=== PATIENT | female | born 1940 | race African-American/Black ===

== ENCOUNTER 2021-06-22 13:45 | Inpatient (IN) | payer MEDICARE ==
[~2021-06-22] VITALS: Ht 157.5 cm; Wt 64.1 kg
[2021-06-22 15:05] LABS: BASOPHIL 0.5 % (0-2); EOSINOPHIL 0 % (0-7); HGB 15.3 g/dl (12.5-16.0); LYMPHOCYTE 8.3 % (15-48); MCH 29.3 pg (25.0-31.0); MCHC 32.6 g/dL (32.0-36.0); MCV 89.9 fL (78.0-100.0); MONOCYTE 4.2 % (0-12); MPV 9.8 fL (6.0-9.5); NEUTROPHIL 82.4 % (41-80); NRBC 0; PLT 279 K/uL (150-400); RBC 5.23 M/uL (4.20-5.40); WBC 10.7 K/uL (4.0-10.5)
[2021-06-22 15:23] LABS: BUN/CREAT RATIO (CALC) 24.7 RATIO; CREATININE 0.85 mg/dL (0.51-0.95); POTASSIUM 4.2 mmol/L (3.5-5.1)
[2021-06-22 21:33] LABS: BILIRUBIN NEGATIVE (NEGATIVE); BLOOD NEGATIVE Ery/uL (NEGATIVE); CLARITY CLEAR (CLEAR); COLOR YELLOW (YELLOW); GLUCOSE (U) NORMAL (NORMAL); LEUKOCYTES NEGATIVE Leu/uL (NEGATIVE); NITRITE NEGATIVE (NEGATIVE); PROTEIN TRACE (LOW) mg/dL (NEGATIVE); UROBILINOGEN 0.2 mg/dL (0.2-1.0)
[2021-06-22] MEDS ORDERED: FLOVENT HF120 PUFFS/ INH (22:02)
[2021-06-22] MEDS ORDERED: CLARITIN10 MG PO (22:02)
[2021-06-22] MEDS ORDERED: NORCO 5-325 TA1 EACH PO (22:03)
[2021-06-22] MEDS ORDERED: OMEPRAZOLE40 MG PO (22:04)
[2021-06-22] MEDS ORDERED: CARAFATE1 GM PO (22:04)
[2021-06-22] MEDS ORDERED: TOPAMAX50 MG PO (22:05)
[2021-06-23 06:48] LABS: BASOPHIL 0.4 % (0-2); EOSINOPHIL 0 % (0-7); HCT 40.6 % (37.0-47.0); HGB 13.2 g/dl (12.5-16.0); MCH 29.7 pg (25.0-31.0); MCHC 32.5 g/dL (32.0-36.0); MCV 91.2 fL (78.0-100.0); MPV 9.7 fL (6.0-9.5); NEUTROPHIL 75.3 % (41-80); NRBC 0; PLT 262 K/uL (150-400); RBC 4.45 M/uL (4.20-5.40); RDW 13.2 % (11.5-14.0); WBC 5.5 K/uL (4.0-10.5)
[2021-06-23 07:03] LABS: LYMPHOCYTE 17.2 % (15-48)
[2021-06-23 07:46] LABS: ALBUMIN 2.2 g/dL (3.4-5.0); BILIRUBIN - TOTAL 0.3 mg/dL (0.2-1.0); BUN/CREAT RATIO (CALC) 22.4 RATIO; C-REACTIVE PROTEIN 9.3 mg/dL (<=0.90); CREATININE 0.76 mg/dL (0.51-0.95); GLOBULIN (CALCULATION) 5.2 g/dL; MAGNESIUM 2.1 mg/dL (1.8-2.4); PHOSPHORUS 4.5 mg/dL (2.6-4.7); POTASSIUM 4.8 mmol/L (3.5-5.1); TOTAL PROTEIN 7.4 g/dL (6.4-8.2)
[2021-06-25 05:59] LABS: BASOPHIL 0.4 % (0-2); EOSINOPHIL 0 % (0-7); HCT 41.2 % (37.0-47.0); HGB 13.3 g/dl (12.5-16.0); LYMPHOCYTE 16.1 % (15-48); MCH 29.5 pg (25.0-31.0); MCHC 32.3 g/dL (32.0-36.0); MCV 91.4 fL (78.0-100.0); MONOCYTE 4.4 % (0-12); MPV 9.7 fL (6.0-9.5); NEUTROPHIL 74.6 % (41-80); NRBC 0; PLT 319 K/uL (150-400); RBC 4.51 M/uL (4.20-5.40); RDW 13.1 % (11.5-14.0)
[2021-06-25 06:09] LABS: WBC 10.6 K/uL (4.0-10.5)
[2021-06-25 06:26] LABS: ALBUMIN 2.4 g/dL (3.4-5.0); BILIRUBIN - TOTAL 0.5 mg/dL (0.2-1.0); BUN/CREAT RATIO (CALC) 24.5 RATIO; CREATININE 0.94 mg/dL (0.51-0.95); GLOBULIN (CALCULATION) 5.1 g/dL; POTASSIUM 4.7 mmol/L (3.5-5.1); TOTAL PROTEIN 7.5 g/dL (6.4-8.2)
[2021-06-26 06:22] LABS: BASOPHIL 0.1 % (0-2); EOSINOPHIL 0 % (0-7); HCT 38.8 % (37.0-47.0); HGB 12.5 g/dl (12.5-16.0); LYMPHOCYTE 13.3 % (15-48); MCH 29.3 pg (25.0-31.0); MCHC 32.2 g/dL (32.0-36.0); MCV 91.1 fL (78.0-100.0); MONOCYTE 3.4 % (0-12); MPV 9.8 fL (6.0-9.5); NEUTROPHIL 80.5 % (41-80); NRBC 0; PLT 288 K/uL (150-400); RBC 4.26 M/uL (4.20-5.40); RDW 13.1 % (11.5-14.0)
[2021-06-26 07:28] LABS: ALBUMIN 2.4 g/dL (3.4-5.0); BILIRUBIN - TOTAL 0.4 mg/dL (0.2-1.0); BUN/CREAT RATIO (CALC) 26.8 RATIO; CREATININE 0.82 mg/dL (0.51-0.95); GLOBULIN (CALCULATION) 4.5 g/dL; POTASSIUM 4.3 mmol/L (3.5-5.1); TOTAL PROTEIN 6.9 g/dL (6.4-8.2)
--- NOTE | 2021-06-26 21:47 | NUR ---
GRANDDAUGHTER EDILIA DANIEL CALLED AND WANTED TO INFORM NURSING PRIOR TO DISCHARGE , FAMILY WANTS TO DISCUSS PLACEMENT FOR REHAB/ LTC FOR PT.
[2021-06-27 06:57] LABS: ALBUMIN 2.4 g/dL (3.4-5.0); BILIRUBIN - TOTAL 0.5 mg/dL (0.2-1.0); BUN/CREAT RATIO (CALC) 26.2 RATIO; CREATININE 0.84 mg/dL (0.51-0.95); GLOBULIN (CALCULATION) 4.7 g/dL; POTASSIUM 4.2 mmol/L (3.5-5.1); TOTAL PROTEIN 7.1 g/dL (6.4-8.2)
--- NOTE | 2021-06-27 09:16 | NUR ---
PATIENT ON O2-3L PER NC. MONITOR SHOWING O2 SATS 86% WENT IN TO ASSESS PATIENT, SITTING UP IN CHAIR IN NO APPARENT DISTRESS. BUMPED PATIENT UP TO 4L PATIENT STILL 86-88% RT NOTIFIED
--- NOTE | 2021-06-27 12:27 | NUR ---
1000--PATIENT PLACED ON 7L OXIMIZER. WILL MONITOR RT NOTIFIED PATINET O2 SATS STILL NOT MAINTAINING ABOVE 89%. BUMPED OXYGEN TO 8L OXIMIZER. WILL MONITOR SATS
[2021-06-29 04:31] LABS: BASOPHIL 0.1 % (0-2); EOSINOPHIL 0.1 % (0-7); HCT 39.7 % (37.0-47.0); HGB 12.9 g/dl (12.5-16.0); LYMPHOCYTE 5.5 % (15-48); MCH 29.1 pg (25.0-31.0); MCHC 32.5 g/dL (32.0-36.0); MCV 89.4 fL (78.0-100.0); MONOCYTE 2.2 % (0-12); MPV 9.8 fL (6.0-9.5); NRBC 0; PLT 283 K/uL (150-400); RBC 4.44 M/uL (4.20-5.40); WBC 16.5 K/uL (4.0-10.5)
[2021-06-29 04:39] LABS: NEUTROPHIL 90.3 % (41-80)
[2021-06-29 05:03] LABS: ALBUMIN 2.5 g/dL (3.4-5.0); BILIRUBIN - TOTAL 0.5 mg/dL (0.2-1.0); BUN/CREAT RATIO (CALC) 30.9 RATIO; CREATININE 0.94 mg/dL (0.51-0.95); GLOBULIN (CALCULATION) 4.1 g/dL; POTASSIUM 4.3 mmol/L (3.5-5.1); TOTAL PROTEIN 6.6 g/dL (6.4-8.2)
[2021-06-30 07:09] LABS: BASOPHIL 0.1 % (0-2); EOSINOPHIL 0.3 % (0-7); HGB 12.9 g/dl (12.5-16.0); LYMPHOCYTE 7.4 % (15-48); MCH 29.4 pg (25.0-31.0); MCHC 32.3 g/dL (32.0-36.0); MCV 91.1 fL (78.0-100.0); MONOCYTE 2.3 % (0-12); MPV 9.9 fL (6.0-9.5); NEUTROPHIL 88.4 % (41-80); NRBC 0; PLT 273 K/uL (150-400); RBC 4.39 M/uL (4.20-5.40); RDW 13.2 % (11.5-14.0); WBC 13.7 K/uL (4.0-10.5)
[2021-06-30 07:20] LABS: ALBUMIN 2.3 g/dL (3.4-5.0); BILIRUBIN - TOTAL 0.6 mg/dL (0.2-1.0); BUN/CREAT RATIO (CALC) 24.5 RATIO; CREATININE 1.06 mg/dL (0.51-0.95); GLOBULIN (CALCULATION) 4.9 g/dL; POTASSIUM 4.4 mmol/L (3.5-5.1); TOTAL PROTEIN 7.2 g/dL (6.4-8.2)
[2021-07-01 06:19] LABS: BASOPHIL 0.1 % (0-2); EOSINOPHIL 0.3 % (0-7); HCT 37.1 % (37.0-47.0); HGB 12.2 g/dl (12.5-16.0); LYMPHOCYTE 7.9 % (15-48); MCH 29.8 pg (25.0-31.0); MCHC 32.9 g/dL (32.0-36.0); MCV 90.5 fL (78.0-100.0); MONOCYTE 1.9 % (0-12); MPV 10.3 fL (6.0-9.5); NEUTROPHIL 88.4 % (41-80); NRBC 0; PLT 250 K/uL (150-400); RDW 13.2 % (11.5-14.0); WBC 10.4 K/uL (4.0-10.5)
[2021-07-01 07:15] LABS: ALBUMIN 2.2 g/dL (3.4-5.0); BILIRUBIN - TOTAL 0.7 mg/dL (0.2-1.0); BUN/CREAT RATIO (CALC) 27.1 RATIO; CREATININE 0.85 mg/dL (0.51-0.95); GLOBULIN (CALCULATION) 4.8 g/dL
[2021-07-02 05:55] LABS: BASOPHIL 0.1 % (0-2); EOSINOPHIL 0 % (0-7); HCT 36.4 % (37.0-47.0); LYMPHOCYTE 6.1 % (15-48); MCH 29.4 pg (25.0-31.0); MCV 89.2 fL (78.0-100.0); MONOCYTE 1.4 % (0-12); NRBC 0; PLT 223 K/uL (150-400); RBC 4.08 M/uL (4.20-5.40); RDW 13.2 % (11.5-14.0); WBC 8.4 K/uL (4.0-10.5)
[2021-07-02 06:33] LABS: BUN/CREAT RATIO (CALC) 27.9 RATIO; CREATININE 0.86 mg/dL (0.51-0.95); MAGNESIUM 2.1 mg/dL (1.8-2.4); PHOSPHORUS 3.7 mg/dL (2.6-4.7); POTASSIUM 4.5 mmol/L (3.5-5.1)
--- NOTE | 2021-07-03 13:34 | NUR ---
07/03/21 Ms. Charles lives alone. She was independent in the home and community prior to admission. Discussion has taken place with patient and her daughter, Moon Quintero, of [place]) re: discharge plans. Ms. Charles has some hesitency re: returning home. Ms. Quintero reports that Ms. Charles's sister, granddaughter and son are avialable to assist. - Referrals have been made to [facility] and [facility] per patient choice. Pt verbalized understanding of [facility] affliation. - A report was given to MS. CUCA Reynoso.
[2021-07-03] MEDS ORDERED: DULERA 200 MCG8.8 GM INH (15:20)
[2021-07-03] MEDS ORDERED: PROVENTIL HFA6.7 GM INH (15:20)
[2021-07-03] MEDS ORDERED: MEDROL 4MG DOSEP4 MG PO (15:29)
== END 2021-07-03 16:00 | disposition home health service (06) | DRG 177 ==
LOC: FER 13:45 → FMS 17:41
PROVIDERS: Family Medicine; Internal Medicine; Nurse Practitioner; Nurse Practitioner Family; ADMIT Internal Medicine
PROC: XW033E5 Introduction of Remdesivir Anti-infective into Peripheral Vein, Percutaneous Approach, New Technology Group 5 (ICD-10-PCS; principal; 2021-06-22)
PROC: 8E0ZXY6 Isolation (ICD-10-PCS; 2021-06-22)
PROC: XW0DXM6 Introduction of Baricitinib into Mouth and Pharynx, External Approach, New Technology Group 6 (ICD-10-PCS; 2021-06-22)
DX: U07.1 COVID-19 (principal); J12.82 Pneumonia due to coronavirus disease 2019; J96.01 Acute respiratory failure with hypoxia; K21.9 Gastro-esophageal reflux disease without esophagitis; G43.909 Migraine, unspecified, not intractable, without status migrainosus; E03.9 Hypothyroidism, unspecified; M50.30 Other cervical disc degeneration, unspecified cervical region; M85.80 Other specified disorders of bone density and structure, unspecified site; D64.9 Anemia, unspecified; E11.65 Type 2 diabetes mellitus with hyperglycemia; T38.0X5A Adverse effect of glucocorticoids and synthetic analogues, initial encounter; K59.01 Slow transit constipation; Z88.6 Allergy status to analgesic agent; Z91.012 Allergy to eggs; Z90.89 Acquired absence of other organs; Z90.710 Acquired absence of both cervix and uterus; Z98.890 Other specified postprocedural states; Z87.891 Personal history of nicotine dependence
CPT/HCPCS: 36415; 36600; 71045; 71046; 71275; 80048; 80053; 81003; 82728; 82803; 82962; 83036; 83605; 83615; 83735; 83880; 84100; 84145; 85025; 85379; 86140; 93005; 94010; 94640; 94667; 94668; 94760; 94762; 97110; 97163; 97166; 97530-GP; 97535; C9399; J1100; J1650; J7030; J7050; J8540; Q9967; U0002

== ENCOUNTER 2021-11-10 12:36 | Emergency (ER) | payer MEDICARE ==
[~2021-11-10 12:36] MED LIST: CARAFATE1 GM PO; CLARITIN10 MG PO; DULERA 200 MCG8.8 GM INH; FLOVENT HF120 PUFFS/ INH; MEDROL 4MG DOSEP4 MG PO; NORCO 5-325 TA1 EACH PO; OMEPRAZOLE40 MG PO; PROVENTIL HFA6.7 GM INH; TOPAMAX50 MG PO
[2021-11-10] MEDS ORDERED: MEDROL 4MG DOSEP4 MG PO (17:15)
[2021-11-10] MEDS ORDERED: VENTOLIN HFA IN18 GM INH (17:15)
== END 2021-11-10 17:51 | disposition home or self-care (01) ==
LOC: FER 12:36
DX: J12.9 Viral pneumonia, unspecified (principal); I10 Essential (primary) hypertension; Z88.8 Allergy status to other drugs, medicaments and biological substances
CPT/HCPCS: 71045; 87880; 99283